=== PATIENT | female | born 1965 | race African-American/Black ===

== ENCOUNTER → 2017-08-09 | Outpatient (CLI) | payer BC ==
[~2017-08-09] VITALS: Ht 157.5 cm; Wt 152.0 kg
[~2017-08-09] MED LIST: FELODIPINE ER10 MG PO; LOSARTAN POTAS100 MG PO; METFORMIN HCL500 MG PO; MEVACOR10 MG PO; NAPROSYN500 MG PO; TOPROL XL100 MG PO
--- NOTE | ~2017-08-09 | S ---
[facility] [place] [address] SURGICAL PATH RPT PROCEDURE Name: DEB BECKETT [facility] [id number] Admission: 08/09/17 Date of : 63 Discharge: Report #: [id number] Path Case #: [id number] PATHOLOGY REPORT COLLECTION DATE: 08/09/2017 RECEIVED DATE: 08/09/2017 SUBMITTING PHYS: Dr. Juve Hernandez OTHER PHYS: SPECIMEN(S) RECEIVED: A.Polyp at sigmoid colon * * * * * * * * * * * * FINAL DIAGNOSIS: "Polyp at sigmoid colon", biopsy: - Hyperplastic polyp with underlying prominent lymphoid aggregate; no dysplasia seen. (CLW:pit; 08/10/2017) PATHOLOGIST: Edel Novoa M.D. REPORT ELECTRONICALLY SIGNED BY: Edel Novoa M.D. DATE/TIME: 08/10/2017 09:46 * * * * * * * * * * * * GROSS PATHOLOGY: Received in formalin labeled "Deb Beckett, polyp at sigmoid colon," is a segment of best soft tissue measuring 0.8 cm in maximum dimension. The specimen is submitted entirely in cassette A1. (CAA; 08/09/2017) CLINICAL HISTORY: Pre-op diagnosis: Colon screening Post-op diagnosis: Colon polyp INITIAL CPT CODE(S): A; 01484 Professional services performed by [facility] at [facility] [address], [place] [address] Technical services performed by [facility] at [address] [place] [address]., [address], [place] [address]. [facility] [address] [place] [address] SURGICAL PATH RPT PROCEDURE Name: DEB BECKETT Room #: REG JENNIFER Lovelace#: [id number] Admission: 08/09/17 Date of : 63 Discharge: Report #: [id number] Path Case #: [id number] [facility] [address] [place] [address] PHONE: [phone] DIRECTOR: Kostas Rebolledo M.D. * * * END OF REPORT * * *
== END | disposition home or self-care (01) ==
LOC: GI 07:55
DX: Z12.11 Encounter for screening for malignant neoplasm of colon (principal); K64.8 Other hemorrhoids; K57.30 Diverticulosis of large intestine without perforation or abscess without bleeding; K63.5 Polyp of colon; I10 Essential (primary) hypertension; E78.00 Pure hypercholesterolemia, unspecified; E11.9 Type 2 diabetes mellitus without complications; K21.9 Gastro-esophageal reflux disease without esophagitis; F32.9 Major depressive disorder, single episode, unspecified; F41.9 Anxiety disorder, unspecified; Z98.890 Other specified postprocedural states
CPT/HCPCS: 62110; 62900